=== PATIENT | female | born 1995 | race Two or more races ===

== ENCOUNTER 2018-02-15 14:03 | Observation (INO) | payer MEDICAID ==
[~2018-02-15 14:03] MED LIST: PRENPAK46 PO
== END 2018-02-15 15:30 | disposition home or self-care (01) | DRG 566 ==
LOC: LDRP 14:03
PROVIDERS: ADMIT Specialist; ATTEND Specialist
DX: O48.0 Post-term pregnancy (principal); Z3A.40 40 weeks gestation of pregnancy
CPT/HCPCS: 59025; 76818; 81002; G0378

== ENCOUNTER 2018-02-17 18:51 | Observation (INO) | payer MEDICAID | END 2018-02-17 20:25 | disposition home or self-care (01) | DRG 566 | LOC: LDRP 18:51 | PROVIDERS: ADMIT Specialist; ATTEND Specialist | DX: O48.0 Post-term pregnancy (principal); Z3A.40 40 weeks gestation of pregnancy | CPT/HCPCS: 59025; 76818; 81002; G0378 ==

== ENCOUNTER 2018-02-19 15:23 | Observation (INO) | payer MEDICAID | END 2018-02-19 17:25 | disposition home or self-care (01) | DRG 566 | LOC: LDRP 15:23 | PROVIDERS: ADMIT Specialist; ATTEND Specialist | DX: O48.0 Post-term pregnancy (principal); Z3A.40 40 weeks gestation of pregnancy | CPT/HCPCS: 59025; 76818; 81002; G0378 ==

== ENCOUNTER 2018-02-21 20:23 | Observation (INO) | payer MEDICAID | END 2018-02-21 21:56 | disposition home or self-care (01) | DRG 566 | LOC: LDRP 20:23 | PROVIDERS: ADMIT Obstetrics & Gynecology; ATTEND Obstetrics & Gynecology | DX: O48.0 Post-term pregnancy (principal); Z3A.40 40 weeks gestation of pregnancy | CPT/HCPCS: 59025; 76818; 81002; G0378 ==

== ENCOUNTER 2018-02-22 07:10 | Inpatient (IN) | payer MEDICAID ==
[~2018-02-22] VITALS: Ht 170.2 cm; Wt 93.9 kg
[2018-02-22] MEDS ORDERED: CARBOPROST TROMETHAMINE 250 MCG/1ML VIAL IM PRN (07:30)
[2018-02-22] MEDS ORDERED: METHYLERGONOVINE MALEATE 0.2 MG/ML AMP IM PRN (07:30)
[2018-02-22] MEDS ORDERED: LIDOCAINE 2% (LOCAL ANESTH.) PF 5ml SDV ID ONE (07:30)
[2018-02-22] MEDS ORDERED: DERMOPLAST 60ML BOTTLE TOP PRN (07:30)
[2018-02-22] MEDS ORDERED: PENICILLIN G POT 5MIL/D5 50ML 50 ML IV ONE (07:30)
[2018-02-22] MEDS ORDERED: NALBUPHINE HCL 10 MG/1ml INJECTION IV PRN (07:30)
[2018-02-22] MEDS ORDERED: PHISODERM TOP SOLN 240ML BTL TOP PRN (07:30)
[2018-02-22] MEDS ORDERED: WITCH HAZEL-GLYCERIN PAD TOP PRN (07:30)
[2018-02-22 08:18] LABS: Urine WBC None Seen /hpf (0 - 5)
[2018-02-22 08:37] LABS: Basophils # (auto) 0 uL; Basophils % (auto) 0.2 % (0.0-2.0); Eosinophils # (auto) 0.1 uL; Eosinophils % (auto) 0.4 % (0.0-7.0); Hematocrit 39.4 % (36.0-46.0); Hemoglobin 13.1 g/dL (12.2-16.2); Lymphocytes % (auto) 19.5 % (10.0-50.0); Mean Corpuscular Hgb Conc. 33.3 g/dL (32.0-36.0); Mean Corpuscular Volume 87.1 fL (80.0-100.0); Monocytes # (auto) 0.8 uL; Monocytes % (auto) 5.1 % (0.0-12.0); Neutrophils # (auto) 11.4 uL; Neutrophils % (auto) 74.8 % (37.0-80.0); Nucleated Red Blood Cells % 0.1 %; Platelet Count (auto) 223 10^3/uL (140-450); Red Blood Cells 4.52 10^6/uL (4.0-5.20); Red Cell Distribution Width 14.1 % (11.8-14.3); White Blood Cell 15.2 10^3/uL (4.4-10.8)
[2018-02-22 08:43] LABS: Urine Bacteria NONE SEEN /hpf (None Seen); Urine Blood Negative /uL (Negative); Urine Mucus FEW (None Seen); Urine Specific Gravity 1.014 (1.001-1.035)
[2018-02-22 08:44] LABS: Albumin 2.6 g/dL (3.4-5.0); BUN/Creatinine Ratio 10.5; Bilirubin, Total 0.6 mg/dL (0.2-1.0); Calcium 8.4 mg/dL (8.5-10.1); Potassium 3.4 mmol/L (3.5-5.1); Total Protein 6.9 g/dL (6.4-8.2)
[2018-02-22 08:52] LABS: INR 0.88 (0.9-1.15); Prothrombin Time 9.5 sec (9.27-12.13)
[2018-02-22] MEDS: ACETAMINOPHEN 325 MG TAB PO PRN (12:26)
[2018-02-22] MEDS: PENICILLIN G POTASSIUM 2,500,000 UNITS in D5W 5% 50 ML IV SCH ×3 (12:36→22:15)
[2018-02-22] MEDS ORDERED: LACT. RINGERS/OXYTOCIN 20UNITS 1,000 ML IV SCH (19:21)
[2018-02-22] MEDS ORDERED: LIDOCAINE HCL 2 %PF INJ 10ML AMP IJ ONE (19:30)
[2018-02-22] MEDS ORDERED: TERBUTALINE SULFATE 1 MG/ML 1ML VIAL SC ONE (19:30)
[2018-02-22] MEDS ORDERED: fentaNYL CITRATE 100 MCG/2 ML VL IV ONE (19:30)
[2018-02-22] MEDS ORDERED: NALOXONE HCL 0.4 MG/ML VIAL IV ONE (19:30)
[2018-02-22] MEDS ORDERED: ePHEDrine SULFATE 50 MG/ML AMP IV ONE (19:30)
[2018-02-22] MEDS ORDERED: fentaNYL W ROPIVACAINE 150 ML EPI SCH (19:30)
[2018-02-22] MEDS ORDERED: BUTORPHANOL TARTRATE 2 MG/1 ML VIAL ONE ×2 (20:42→22:51)
[2018-02-22] MEDS: BUTORPHANOL TARTRATE 2 MG/1 ML VIAL IV PRN ×2 (20:55→22:56)
[2018-02-23] MEDS: PENICILLIN G POTASSIUM 2,500,000 UNITS in D5W 5% 50 ML IV SCH (03:00)
[2018-02-23] MEDS: ACETAMINOPHEN 325 MG TAB PO PRN (03:42)
[2018-02-23 05:05] LABS: RPR Non Reactive (Non Reactive)
[2018-02-23] MEDS ORDERED: DIPHENOXYLATE W/ATROPINE 2.5 MG TAB PO PRN (06:45)
[2018-02-23] MEDS ORDERED: ONDANSETRON HCL 4 MG/2 ML VIAL IV PRN (06:45)
[2018-02-23] MEDS ORDERED: METHYLERGONOVINE MALEATE 0.2 MG/ML AMP IM ONE (06:45)
[2018-02-23] MEDS: IBUPROFEN 600 MG TAB PO PRN ×2 (07:08→17:03)
[2018-02-23] MEDS ORDERED: DOCUSATE CALCIUM 240 MG CAP PO SCH (10:00)
[2018-02-23 11:20] VITALS: BP 137/65
[2018-02-23 15:00] VITALS: BP 108/61
[2018-02-23 19:00] VITALS: BP 129/81
[2018-02-23] MEDS ORDERED: TETANUS-DIPTH-ACEL PERTUSSIS 0.5ML SYRG IM ONE (21:00)
[2018-02-23 21:41] LABS: Alcohol, Urine < 3.0 mg/dL (0-5); Amphetamine Screen, Urine NEGATIVE (NEGATIVE); Barbiturate Scree,Urine NEGATIVE (NEGATIVE); Benzodiazephine Screen, Urine NEGATIVE (NEGATIVE); Cannabinoid Screen, Urine NEGATIVE (NEGATIVE); Cocaine Screen, Urine NEGATIVE (NEGATIVE); Opiate Scree,Urine NEGATIVE (NEGATIVE); Phencyclidine Screen, Urine NEGATIVE (NEGATIVE)
[2018-02-23 23:00] VITALS: BP 115/69
[2018-02-24 03:00] VITALS: BP 113/57
[2018-02-24] MEDS: ACETAMINOPHEN 325 MG TAB PO PRN (03:25)
[2018-02-24 07:20] VITALS: BP 121/58
[2018-02-24 11:00] VITALS: BP 100/48
[2018-02-24 11:05] VITALS: BP 107/66
== END 2018-02-24 14:30 | disposition home or self-care (01) | DRG 560 ==
LOC: LDRP 07:10 → SUR 07:10 → EDSTATUS 07:18 → LDRP 07:44
PROVIDERS: ADMIT Obstetrics & Gynecology; ATTEND Obstetrics & Gynecology
PROC: 10E0XZZ Delivery of Products of Conception, External Approach (ICD-10-PCS; principal; 2018-02-23)
PROC: 3E033VJ Introduction of Other Hormone into Peripheral Vein, Percutaneous Approach (ICD-10-PCS; 2018-02-23)
PROC: 0UQMXZZ Repair Vulva, External Approach (ICD-10-PCS; 2018-02-23)
DX: O48.0 Post-term pregnancy (principal); O69.81X0 Labor and delivery complicated by cord around neck, without compression, not applicable or unspecified; O77.0 Labor and delivery complicated by meconium in amniotic fluid; Z37.0 Single live birth; Z3A.41 41 weeks gestation of pregnancy; Z90.49 Acquired absence of other specified parts of digestive tract; O71.82 Other specified trauma to perineum and vulva; Z23 Encounter for immunization
CPT/HCPCS: 36415; 59025; 59409; 62282; 80053; 80307; 81001; 85025; 85610; 85730; 86592; 86850; 86900; 86901; 90715; 94762; 96365; 96366; 96372; 96374; 96375; J2540; J2590; J3010; J7060

== ENCOUNTER 2018-04-01 11:08 | Emergency (ER) | payer MEDICAID ==
[~2018-04-01] VITALS: Ht 170.2 cm; Wt 91.6 kg
[2018-04-01 11:37] LABS: Basophils # (auto) 0.1 uL; Basophils % (auto) 0.6 % (0.0-2.0); Eosinophils # (auto) 0.2 uL; Eosinophils % (auto) 2.2 % (0.0-7.0); Hemoglobin 13.8 g/dL (12.2-16.2); Lymphocytes # (auto) 2.8 uL; Lymphocytes % (auto) 32.2 % (10.0-50.0); Mean Corpuscular Hemoglobin 28.8 pg (28.0-32.0); Mean Corpuscular Hgb Conc. 32.9 g/dL (32.0-36.0); Mean Corpuscular Volume 87.4 fL (80.0-100.0); Monocytes # (auto) 0.7 uL; Monocytes % (auto) 8.6 % (0.0-12.0); Neutrophils # (auto) 4.8 uL; Neutrophils % (auto) 56.4 % (37.0-80.0); Nucleated Red Blood Cells % 0.1 %; Platelet Count (auto) 255 10^3/uL (140-450); Red Cell Distribution Width 14.5 % (11.8-14.3); White Blood Cell 8.5 10^3/uL (4.4-10.8)
[2018-04-01 11:40] VITALS: BP 120/73
[2018-04-01 11:55] LABS: INR 0.93 (0.9-1.15); Partial Thromboplastin Time 27.8 sec (23.78-33.04)
== END 2018-04-01 13:15 | disposition home or self-care (01) ==
LOC: ER 11:08
DX: N93.9 Abnormal uterine and vaginal bleeding, unspecified (principal); Z90.49 Acquired absence of other specified parts of digestive tract
CPT/HCPCS: 36415; 76830; 76856; 84702; 85025; 85610; 85730

== ENCOUNTER 2022-07-22 03:30 | Emergency (ER) | payer MEDICAID ==
[~2022-07-22] VITALS: Ht 170.2 cm; Wt 81.2 kg
[2022-07-22 04:36] VITALS: BP 102/55
[2022-07-22] MEDS ORDERED: KETOROLAC TROMETH 60MG/2ML VIAL IM ONE (05:00)
[2022-07-22] MEDS ORDERED: AMOX-277 PO (05:25)
[2022-07-22] MEDS ORDERED: IBUP800T27 PO (05:25)
[2022-07-22] MEDS ORDERED: HUR60 MT (05:25)
== END 2022-07-22 05:35 | disposition home or self-care (01) ==
LOC: ER 03:30
DX: K08.89 Other specified disorders of teeth and supporting structures (principal); Z90.49 Acquired absence of other specified parts of digestive tract
CPT/HCPCS: 81025; 96372; 99283; J1885